=== PATIENT | female | born 1950 | race Caucasian/White ===

== ENCOUNTER 2016-10-14 08:16 | Outpatient (CLI) | payer MEDICARE, OTHER | END 2016-10-14 08:17 | disposition home or self-care (01) | DX: E78.5 Hyperlipidemia, unspecified (principal); M81.0 Age-related osteoporosis without current pathological fracture; K29.70 Gastritis, unspecified, without bleeding; Z79.899 Other long term (current) drug therapy; Z85.3 Personal history of malignant neoplasm of breast ==

== ENCOUNTER 2017-10-07 11:20 | Outpatient (CLI) | payer MEDICARE, OTHER ==
--- NOTE | 2017-10-07 13:27 | XRAY Report ---
DATE OF SERVICE: 10/07/2017 TWO VIEW CHEST: 10/07/2017 CLINICAL INDICATION: Cough, former smoker. COMPARISON: 03/17/2016. FINDINGS: Frontal and lateral views of the chest demonstrate a normal cardiac silhouette. The lungs are clear. No effusion or pneumothorax is present. IMPRESSION: NORMAL CHEST. TD: 10/07/2017 14:27
== END 2017-10-07 11:21 | disposition home or self-care (01) ==
LOC: DI 11:20
PROVIDERS: ATTEND Physician Assistant
DX: R05 Cough (principal); Z87.891 Personal history of nicotine dependence
CPT/HCPCS: 71046

== ENCOUNTER 2017-10-29 07:59 | Outpatient (CLI) | payer MEDICARE, OTHER ==
--- NOTE | 2017-10-30 14:06 | Mammography Report ---
DIGITAL SCREENING MAMMOGRAM: 10/29/2017 CLINICAL INDICATION: A 67-year-old with history of left excisional biopsy, nulliparous patient, for screening. COMPARISON: 04/2016, 03/2015, 08/2014, 12/2013, 05/2013, 11/2012, 10/2012, 08/2011. TECHNIQUE: Routine CC and MLO projections were obtained of the breasts. FINDINGS: The breasts demonstrate heterogeneously dense fibroglandular parenchyma bilaterally. Coarse and punctate, typically benign calcifications are present. Postoperative changes in the left breast are stable. No suspicious masses, clustered microcalcifications, or regions of architectural distortion are identified. IMPRESSION: BENIGN FINDINGS. RECOMMENDATION: ROUTINE ANNUAL SCREENING UNLESS OTHERWISE CLINICALLY INDICATED. BIRADS CATEGORY 2-BENIGN FINDINGS. STANDARD QUALIFYING STATEMENTS: 1. This examination was reviewed with the aid of Computer-Aided Detection (CAD). 2. A negative or benign imaging report should not delay biopsy if clinically suspicious findings are present. Consider surgical consultation if warranted. More than 5% of cancers are not identified by imaging. 3. Dense breasts may obscure an underlying neoplasm. TD: 10/30/2017 14:05
== END 2017-10-29 08:00 | disposition home or self-care (01) ==
LOC: DI 07:59
PROVIDERS: ATTEND Physician Assistant
DX: Z12.31 Encounter for screening mammogram for malignant neoplasm of breast (principal)
CPT/HCPCS: 77067

== ENCOUNTER 2021-11-05 10:39 | Outpatient (CLI) | payer MEDICARE, OTHER ==
--- NOTE | 2021-11-06 12:08 | Mammography Report ---
BILATERAL DIGITAL SCREENING MAMMOGRAM 3D/2D: 11/05/2021 CLINICAL: Routine screening. Routine screening. Personal history of left breast cancer. Comparison is made to exams dated: 10/29/2017 mammogram, 04/25/2016 mammogram, and 03/22/2015 mammogram - [facility]. The tissue of both breasts is heterogeneously dense. This may lower the sensitivity of mammography. There are benign post operative findings in the left breast. No significant masses, calcifications, or other findings are seen in either breast. There has been no significant interval change. IMPRESSION: BENIGN There is no mammographic evidence of malignancy. A 1 year screening mammogram is recommended. This exam was interpreted at Station ID: [id number]. NOTE: For mammograms, a report in lay terms will be sent to the patient. Approximately 15% of breast malignancies will not be visualized mammographically. In the management of a palpable breast mass, a negative mammogram must not discourage biopsy of a clinically suspicious lesion. Electronically Signed By: Seth Francisco M.D. [facility] [place]:11/05/2021 13:00:44 ACR BI-RADS Category 2: Benign Finding(s) 3342F PARENCHYMAL PATTERN: (D) - The breast(s) demonstrate(s) heterogeneously dense fibroglandular jenifer todd. BI-RADS CATEGORY: (2) - 2 RECOMMENDATION: (ANNUAL) - Recommend routine annual screening mammography. [id number] 1 year screening LATERALITY: (B)
== END 2021-11-05 10:40 | disposition home or self-care (01) ==
LOC: DI.S 10:39
PROVIDERS: ATTEND Internal Medicine
DX: Z12.31 Encounter for screening mammogram for malignant neoplasm of breast (principal); Z85.3 Personal history of malignant neoplasm of breast

== ENCOUNTER 2022-10-31 09:29 | Outpatient (CLI) | payer MEDICARE, OTHER ==
[2022-10-31 15:45] LABS: BASOPHILS % (AUTO) 0.6 %; EOSINOPHILS # (AUTO) 0.3 10^3/uL (0.0-0.7); HCT - HEMATOCRIT 37.3 % (37.0-47.0); HGB - HEMOGLOBIN 11.8 g/dL (12.0-16.0); LYMPHOCYTES # (AUTO) 2.3 10^3/uL (1.5-3.5); LYMPHOCYTES % (AUTO) 33.2 %; MEAN CORPUSCULAR HEMOGLOBIN 27.4 pg (27.0-31.0); MEAN CORPUSCULAR HGB CONC 31.6 g/dL (32.0-36.0); MEAN CORPUSCULAR VOLUME 86.5 fL (81.0-99.0); MEAN PLATELET VOLUME 10.6 fL (7.9-10.8); MONOCYTES # (AUTO) 0.4 10^3/uL (0.0-1.0); MONOCYTES % (AUTO) 5.8 %; NEUTROPHILS # (AUTO) 3.9 10^3/uL (1.5-6.6); NEUTROPHILS % (AUTO) 56.3 %; PLT - PLATELET COUNT 210 10^3/uL (130-450); RED BLOOD COUNT 4.31 10^6/uL (4.20-5.40); RED CELL DISTRIBUTION WIDTH 13.6 % (12.0-15.0); WHITE BLOOD COUNT 6.9 x10^3/uL (4.8-10.8)
[2022-10-31 16:07] LABS: ALBUMIN 4.4 g/dL (3.2-5.5); ALBUMIN/GLOBULIN RATIO 1.6 (1.0-2.2); ALKALINE PHOSPHATASE 72 IU/L (42-121); ALT ALANINE AMINOTRANSFERASE 19 IU/L (10-60); AST ASPARTATE AMINOTRANSFERASE 25 IU/L (10-42); BILIRUBIN,TOTAL 0.7 mg/dL (0.2-1.0); BUN - BLOOD UREA NITROGEN 25 mg/dL (6-20); CALCIUM 9.9 mg/dL (8.5-10.3); CARBON DIOXIDE - CO2 30 mmol/L (21-32); CHLORIDE 100 mmol/L (101-111); CHOL/HDL RATIO 2.5 (<4.4); CHOLESTEROL 162 mg/dL; GFR - MDRD 54 (>89); GLUCOSE 83 mg/dL (70-100); HDL CHOLESTEROL 66 mg/dL; LDL CHOLESTEROL,CALCULATED 81 mg/dL; LDL/HDL RATIO 1.2 (<4.4); POTASSIUM 4.5 mmol/L (3.5-5.0); SODIUM 137 mmol/L (135-145); TOTAL PROTEIN 7.1 g/dL (6.7-8.2); TRIGLYCERIDES 73 mg/dL; VLDL CHOLESTEROL 15 mg/dL
[2022-10-31 16:11] LABS: CRP - C-REACTIVE PROTEIN < 1.0 mg/dL (0-1.0)
[2022-10-31 16:14] LABS: THYROID STIMULATING HORMONE 1.46 uIU/mL (0.34-5.60)
[2022-10-31 22:25] LABS: ESTIMATED AVERAGE GLUCOSE 126 mg/dL (70-100)
== END 2022-10-31 23:59 | disposition home or self-care (01) ==
LOC: LAB.R 09:29
PROVIDERS: ATTEND Internal Medicine
DX: Z00.00 Encounter for general adult medical examination without abnormal findings (principal); F41.9 Anxiety disorder, unspecified; F32.A Depression, unspecified; E78.5 Hyperlipidemia, unspecified; R73.01 Impaired fasting glucose; M81.0 Age-related osteoporosis without current pathological fracture; K29.70 Gastritis, unspecified, without bleeding; R51.9 Headache, unspecified; R10.9 Unspecified abdominal pain; R07.9 Chest pain, unspecified; M54.50 Low back pain, unspecified; R07.81 Pleurodynia; J30.2 Other seasonal allergic rhinitis; Z79.899 Other long term (current) drug therapy
CPT/HCPCS: 80053; 80061; 82306; 82607; 83036; 83721; 84443; 85025; 85651; 86140

== ENCOUNTER 2022-11-03 10:32 | Outpatient (CLI) | payer MEDICARE, OTHER ==
--- NOTE | 2022-11-03 12:14 | XRAY Report ---
PROCEDURE: Ribs w/PA Chest LT INDICATIONS: RIB PAIN TECHNIQUE: 2 views of the left ribs were acquired, along with a single view chest. COMPARISON: Chest radiographs 10/07/2017 FINDINGS: Bones and chest wall: No fractures or dislocations. No suspicious bony lesions. Overlying soft tis sues appear unremarkable. Lungs and pleura: No pleural effusions or pneumothorax. No consolidation. 8 mm rounded nodular densi ty projecting over the right mid lung with central lucency Mediastinum: Mediastinal contours appear normal. Heart size is normal. IMPRESSION: 1. No acute displaced rib fracture identified. 2. No pneumothorax. 3. An 8 mm rounded nodular density projecting over the right mid lung may represent artifact/object e xternal to the patient such as related to clothing, but a pulmonary nodule is also possible. CT of th e chest could be obtained for further evaluation if indicated. Reviewed by: Ulices Paez MD on 11/03/2022 12:12 PM PST Approved by: Ulices Paez MD on 11/03/2022 12:12 PM PST Station ID: [id number]
== END 2022-11-03 10:33 | disposition home or self-care (01) ==
LOC: DI 10:32
PROVIDERS: ATTEND Internal Medicine
DX: R07.81 Pleurodynia (principal); R91.8 Other nonspecific abnormal finding of lung field

== ENCOUNTER 2022-11-10 13:14 | Outpatient (CLI) | payer MEDICARE, OTHER ==
--- NOTE | 2022-11-11 10:02 | Mammography Report ---
BILATERAL DIGITAL SCREENING MAMMOGRAM 3D/2D: 11/10/2022 CLINICAL: Routine screening. Comparison is made to exams dated: 11/05/2021 mammogram, 10/29/2017 mammogram, 04/25/2016 mammogram, 03/07 mammogram, 09/05/2014 mammogram, and 12/22/2013 mammogram - [facility]. Both breasts are heterogeneously dense, which may obscure small masses (category c / 51-75% glandular tissue). There are benign post operative findings in the left breast. No significant masses, calcifications, or other findings are seen in either breast. There has been no significant interval change. IMPRESSION: BENIGN There is no mammographic evidence of malignancy. A 1 year screening mammogram is recommended. This exam was interpreted at Station ID: [id number]. NOTE: For mammograms, a report in lay terms will be sent to the patient. Approximately 15% of breast malignancies will not be visualized mammographically. In the management of a palpable breast mass, a negative mammogram must not discourage biopsy of a clinically suspicious lesion. Electronically Signed By: Edwardo snyder/mehul:11/10/2022 17:13:14 letter sent: No_Letter ACR BI-RADS Category 2: Benign Finding(s) 3342F PARENCHYMAL PATTERN: (D) - The breast(s) demonstrate(s) heterogeneously dense fibroglandular jenifer otdd. BI-RADS CATEGORY: (2) - 2 Mammogram [id number] 1 year screening LATERALITY: (B)
== END 2022-11-10 13:15 | disposition home or self-care (01) ==
LOC: DI 13:14
PROVIDERS: ATTEND Internal Medicine
DX: Z12.31 Encounter for screening mammogram for malignant neoplasm of breast (principal)

== ENCOUNTER 2022-11-17 10:44 | Outpatient (CLI) | payer MEDICARE, OTHER ==
--- NOTE | 2022-11-17 16:07 | CT Report ---
PROCEDURE: CHEST WO INDICATIONS: CHEST PAIN TECHNIQUE: Noncontrast 1mm axial images were acquired from the pulmonary apices to the posterior costophrenic an gles. Axial 5 mm soft tissue kernel reconstructions were performed as well as 8 mm axial MIP and cor onal and sagittal 5 mm reformations. For radiation dose reduction, the following was used: automate d exposure control, adjustment of mA and/or kV according to patient size. COMPARISON: Chest and rib x-ray 11/03/2022, CT abdomen pelvis 08/17/2015. FINDINGS: Image quality: Excellent. Lungs and pleura: No acute air space opacities. No suspicious lung nodules or masses. No pleural ef fusions or pneumothorax. Central and peripheral airways are patent and normal in caliber. Mediastinum: Heart size is normal. No pericardial effusion. No mediastinal adenopathy by size crit eria. Thoracic aorta and central pulmonary arteries are normal in size. Esophagus is normal in [place]. No hiatal hernia. Bones and chest wall: There is a bone island laterally in the right seventh rib arc which accounts f or radiodensity seen on the chest x-ray. There are no other opacities to account for the lucent cente red opacity of concern. There are surgical clips in the left breast. Vertebral bodies are normal in h eight with mild degenerative endplate spurring. No axillary or supraclavicular adenopathy by size cr iteria. The thyroid is normal in size and there are no incidental findings. Abdomen: There are a few lobulated liver hypodensities previously characterized to the hepatic heman giomas. Visualized upper abdominal solid organs and bowel loops appear normal in the absence of contr ast. IMPRESSION: 1. No suspicious pulmonary lesion to account for chest x-ray finding. This is likely artifactual. 2. No acute pulmonary parenchymal pathology. Reviewed by: Stephanie Ca MD on 11/17/2022 4:05 PM PDT Approved by: Stephanie Ca MD on 11/17/2022 4:05 PM PDT Station ID: [id number]
== END 2022-11-17 10:45 | disposition home or self-care (01) ==
LOC: DI 10:44
PROVIDERS: ATTEND Internal Medicine
DX: R07.9 Chest pain, unspecified (principal)

== ENCOUNTER 2023-06-09 09:24 | Outpatient (CLI) | payer MEDICARE, OTHER ==
--- NOTE | 2023-06-09 10:55 | XRAY Report ---
PROCEDURE: Cervical Spine 2 View INDICATIONS: CERVICAL SPINE TECHNIQUE: 3 view(s) of the cervical spine were acquired. COMPARISON: None. FINDINGS: Bones: There is grade 1 anterolisthesis of C3 on C4 and C4 on C5. Loss of normal cervical lordosis. No fractures or dislocations to the T1 level. The lateral masses of C1 appear intact on the odontoid view. No suspicious bony lesions. Moderate degenerative disc disease at C3-C4, C4-C5, C5-C6 and C6 -C7. Moderate bilateral facet arthropathy, most pronounced at C3-C4 and C4-C5. Soft tissues: No prevertebral soft tissue swelling. IMPRESSION: 1. Moderate degenerative disc and facet disease in cervical spine. Reviewed by: Sara Lutz MD on 06/09/2023 10:54 AM PDT Approved by: Sara Lutz MD on 06/09/2023 10:54 AM PDT Station ID: [id number]
== END 2023-06-09 09:25 | disposition home or self-care (01) ==
LOC: DI 09:24
PROVIDERS: ATTEND Internal Medicine
DX: M79.2 Neuralgia and neuritis, unspecified (principal); M47.812 Spondylosis without myelopathy or radiculopathy, cervical region; M50.31 Other cervical disc degeneration, high cervical region

== ENCOUNTER 2023-11-13 09:17 | Outpatient (CLI) | payer MEDICARE, OTHER ==
--- NOTE | 2023-11-13 13:13 | Ultrasound Report ---
PROCEDURE: Aorta Screening INDICATIONS: FAMILY HIST OF AORTIC DISSECTION TECHNIQUE: Real time scanning was performed of the aorta and iliac arteries, with image documentatio n. COMPARISON: None. FINDINGS: Aorta: Proximal aortic diameter measures 2.2 cm. Mid-aorta measures 1.6 cm. Distal aortic diameter is 1.5 cm. Iliac arteries: Right common iliac artery measures 0.7 cm. Left common iliac artery measures 0.8 cm . IMPRESSION: No abdominal aortic ectasia or aneurysmal dilatation. Recommended intervals for follow-up imaging of ectatic aortas and abdominal aortic aneurysms, per ACR consensus guidelines: 2.5-2.9 cm: 5 years 3.0-3.4 cm: 3 years 3.5-3.9 cm: 2 years 4.0-4.4 cm: 1 year 4.5-4.9 cm: 6 months + endovascular referral 5.0-5.5 cm: 3-6 months + endovascular referral Reviewed by: Marissa Townsend MD on 11/13/2023 1:12 PM PST Approved by: Marissa Townsend MD on 11/13/2023 1:12 PM PST Station ID: [id number]
== END 2023-11-13 09:18 | disposition home or self-care (01) ==
LOC: DI 09:17
PROVIDERS: ATTEND Internal Medicine
DX: Z13.6 Encounter for screening for cardiovascular disorders (principal); Z82.49 Family history of ischemic heart disease and other diseases of the circulatory system

== ENCOUNTER 2023-11-25 14:29 | Outpatient (CLI) | payer MEDICARE, OTHER ==
--- NOTE | 2023-11-26 07:38 | Mammography Report ---
BILATERAL DIGITAL SCREENING MAMMOGRAM 3D/2D: 11/25/2023 CLINICAL: Routine screening. Personal history of left breast cancer. Comparison is made to exams dated: 11/10/2022 mammogram, 11/05/2021 mammogram, 10/29/2017 mammogram, and 04/25/2016 mammogram - [facility]. Both breasts are heterogeneously dense, which may obscure small masses (category c / 51-75% glandular tissue). There are benign post operative findings in the left breast. No significant masses, calcifications, or other findings are seen in either breast. There has been no significant interval change. IMPRESSION: BENIGN There is no mammographic evidence of malignancy. A 1 year screening mammogram is recommended. This exam was interpreted at Station ID: [id number]. NOTE: For mammograms, a report in lay terms will be sent to the patient. Approximately 15% of breast malignancies will not be visualized mammographically. In the management of a palpable breast mass, a negative mammogram must not discourage biopsy of a clinically suspicious lesion. Electronically Signed By: Seth preciado/mehul:11/25/2023 20:53:12 letter sent: No_Letter ACR BI-RADS Category 2: Benign Finding(s) 3342F PARENCHYMAL PATTERN: (D) - The breast(s) demonstrate(s) heterogeneously dense fibroglandular parisacy ma. BI-RADS CATEGORY: (2) - 2 RECOMMENDATION: (ANNUAL) - Recommend routine annual screening mammography. [id number] 1 year screening LATERALITY: (B)
== END 2023-11-25 14:30 | disposition home or self-care (01) ==
LOC: DI 14:29
PROVIDERS: ATTEND Internal Medicine
DX: Z12.31 Encounter for screening mammogram for malignant neoplasm of breast (principal); Z85.3 Personal history of malignant neoplasm of breast; R92.333 Mammographic heterogeneous density, bilateral breasts

== ENCOUNTER 2024-03-16 07:09 | Day surgery (SDC) | payer MEDICARE, OTHER ==
[2024-03-16] MEDS: LACTATED RINGERS 1,000 ML IV ONE ×2 (07:20→09:25)
[2024-03-16] MEDS ORDERED: PROPOFOL 500 MG/50 ML 500 MG/50 ML VIAL ONE (07:54)
--- NOTE | 2024-03-16 07:57 | ANESTHESIA ---
Pre-Anesthesia VS, & Labs - Diagnosis Screening exam - Procedure colonoscopy Vital Signs: Temp Pulse Resp BP Pulse Ox O2 Flow Rate 36.2 C L 72 14 129/63 97 03/16/24 07:20 03/16/24 07:20 03/16/24 07:20 03/16/24 07:20 03/16/24 07:20 Height: 5 ft 3 in Weight (kg): 66 kg Body Mass Index: 25.7 BMI Classification: Overweight - NPO >8 hours - Is Patient ?: No - Lab Results Current Lab Results: Laboratory Tests 03/16/24 07:36: POC Whole Bld Glucose 81 Home Medications and Allergies Home Medications: Ambulatory Orders Atorvastatin [Lipitor] 10 mg PO DAILY 03/15/24 Fluvoxamine Maleate 50 mg PO DAILY 03/15/24 Mirtazapine 30 mg PO DAILY 03/15/24 clonazePAM [Clonazepam] 0.25 mg PO DAILY 03/15/24 metFORMIN [Glucophage] 500 mg PO TID 03/15/24 Active Medications Alprazolam (Alprazolam 0.25 Mg Tablet) 0.25 mg PO ONCE VAN Gabapentin [Neurontin] 600 mg PO DAILY 03/17/16 Atorvastatin [Lipitor] 10 mg PO DAILY 03/15/24 Fluvoxamine Maleate 50 mg PO DAILY 03/15/24 Mirtazapine 30 mg PO DAILY 03/15/24 clonazePAM [Clonazepam] 0.25 mg PO DAILY 03/15/24 metFORMIN [Glucophage] 500 mg PO TID 03/15/24 Allergies/Adverse Reactions: Allergies Allergy/AdvReac Type Severity Reaction Status Date / Time ibuprofen [From Advil] Allergy Emesis Verified 03/17/16 10:47 morphine Allergy Hallucinati Verified 03/17/16 10:47 ons Penicillins Allergy Hives Verified 03/17/16 10:47 Anes History & Medical History - Anesthetic History Anesthesia Complications: reports: No previous complications - Medical History Cardiovascular: reports: High cholesterol Pulmonary: reports: None Gastrointestinal: reports: Hemorrhoids Urinary: reports: None Neuro: reports: None Musculoskeletal: reports: Osteoarthritis Endocrine/Autoimmune: reports: Other ("pre-diabetic") Smoking Status: Former smoker (quit 1994) Psychosocial: reports: Anxiety, Cannabis (daily use) History of Cancer?: Yes (breast cancer) - Surgical History General: reports: Colonoscopy Eyes Ears Nose Throat (EENT): reports: Cataracts, Detached retina repair Gynecologic: reports: Other Exam General: Alert, Oriented x3, Cooperative, No acute distress Dental: WNL Mouth Openin Fingerbreadth Neck Mobility: Normal Mallampati classification: II Thyromental Distance: 4-6 cm Mental/Cognitive Status: Alert/Oriented X3, Normal for patient Plan Anesthesia Type: General Consent for Procedure(s) Verified and Reviewed: Yes Code Status: Attempt Resuscitation ASA classification: 2-Mild systemic disease Is this case an emergency?: No
[2024-03-16] MEDS ORDERED: ALPRAZolam 0.25 MG TABLET PO ONE ×2 (07:59→08:00)
[2024-03-16] MEDS ORDERED: MIDAZOLAM 2 MG/2 ML VIAL ONE (08:04)
[2024-03-16] MEDS ORDERED: LIDOCAINE-PF 2% 10 ML AMP SUBQ ONE (08:34)
[2024-03-16] MEDS ORDERED: PROPOFOL 200 MG/20 ML VIAL IVP ONE (09:17)
[2024-03-16 09:31] VITALS: O2SAT 96
[2024-03-16 09:42] VITALS: BP 158/75
--- NOTE | 2024-03-16 10:14 | ANESTHESIA POST OP EVALUATION ---
Anesthesia Post Eval - Post Anesthesia Eval Vitals: Last Vital Signs Temp 36.6 C 03/16/24 09:25 Pulse 64 03/16/24 09:37 Resp 14 03/16/24 09:37 BP 158/75 H 03/16/24 09:37 Pulse Ox 96 03/16/24 09:37 O2 Flow Rate CV Function Including HR & BP: Stable Pain Control: Satisfactory Nausea & Vomiting: Negative Mental Status: Baseline Respiratory Status: Airway Patent Hydration Status: Satisfactory Anesthesia Complications: None
== END 2024-03-16 07:10 | disposition home or self-care (01) ==
LOC: SDS 07:09
PROVIDERS: ATTEND Surgery
PROC: 0DBN8ZZ Excision of Sigmoid Colon, Via Natural or Artificial Opening Endoscopic (ICD-10-PCS; 2024-03-16)
PROC: 3E0H8KZ Introduction of Other Diagnostic Substance into Lower GI, Via Natural or Artificial Opening Endoscopic (ICD-10-PCS; 2024-03-16)
PROC: 0DBH8ZZ Excision of Cecum, Via Natural or Artificial Opening Endoscopic (ICD-10-PCS; principal; 2024-03-16 08:30)
DX: Z12.11 Encounter for screening for malignant neoplasm of colon (principal); D12.7 Benign neoplasm of rectosigmoid junction; D12.0 Benign neoplasm of cecum; D12.5 Benign neoplasm of sigmoid colon; K57.30 Diverticulosis of large intestine without perforation or abscess without bleeding; Z87.891 Personal history of nicotine dependence; E11.9 Type 2 diabetes mellitus without complications; Z79.84 Long term (current) use of oral hypoglycemic drugs; E78.5 Hyperlipidemia, unspecified
CPT/HCPCS: 45380; 45381; 45385; A9270; J7120